=== PATIENT | female | born 1945 | race Caucasian/White ===

== ENCOUNTER → 2018-08-20 | Outpatient (CLI) | payer OTHER ==
[~2018-08-20] MED LIST: ASPI81CH PO; ASPI81EC PO; ATOR20 PO; CARV6.25 PO; CHLO5; CHOL10002; CLOP75 PO; Chantix0.5 MG PO; ERGO50000 PO; EVAMIST TOP; EXEM25 PO; FURO80 PO; HYDACE10B PO; HYDACE5 PO; Halcion0.25 MG PO; LISI20 PO; LORA.5 PO; MELA3 PO; META800 PO; NAPR500 PO; RANI150 PO; SERT100 PO; SERT25 PO; SULTRIDS PO; TRAM50 PO; Verotin-Gr Cap1 EACH PO
== END | disposition home or self-care (01) ==
LOC: PLD 07:56 → LAB SHORT 07:56
DX: L72.9 Follicular cyst of the skin and subcutaneous tissue, unspecified (principal)
CPT/HCPCS: 88304

== ENCOUNTER → 2018-12-11 | Outpatient (CLI) | payer OTHER ==
[2018-12-11 13:31] LABS: Source, Urine Clean Catch
[2018-12-11 18:02] LABS: Bilirubin, Urine Neg (Neg); Blood, Urine Neg (Neg); Glucose Qualitative, Urine Neg (Neg); Ketones, Urine Neg (Neg); Leukocyte Esterase, Urine 2+ (Neg); Nitrite, Urine Neg (Neg); Protein, Urine Neg (Neg); Urobilinogen, Urine NORM (Normal)
[2018-12-11 18:31] LABS: Appearance, Urine Clear (Clear); Color, Urine Yellow (P-Yellow)
[2018-12-11 18:37] LABS: Bacteria Mod /hpf; Red Blood Cells, Urine 0-2 /hpf (0-2); Squamous Epithelial Cells Few /hpf (Few)
== END ==
LOC: LAB SHORT 13:30 → LAB 13:30 → LAB FUT 10-27 13:00
PROVIDERS: Physician Assistant
DX: R41.3 Other amnesia (principal)
CPT/HCPCS: 81001; 87086

== ENCOUNTER 2022-05-21 16:42 | Emergency (ER) | payer OTHER ==
[~2022-05-21] VITALS: Ht 154.9 cm; Wt 61.2 kg
[2022-05-21 17:38] LABS: Influenza A, PCR NEGATIVE (NEGATIVE); Influenza B, PCR NEGATIVE (NEGATIVE); Resp Syncytial Virus, PCR NEGATIVE (NEGATIVE); SARS-Cov-2 (COVID-19) PCR, MMC NEGATIVE (NEGATIVE)
[2022-05-21 17:44] LABS: BASOPHILS ABSOLUTE AUTO 0.06 K/mm3 (0.00-0.23); BASOPHILS PERCENT AUTO 1 % (0-2); EOSINOPHILS ABSOLUTE AUTO 0.32 K/mm3 (0.00-0.68); EOSINOPHILS PERCENT AUTO 5 % (0-6); Hematocrit 46.4 % (33.0-51.0); Hemoglobin 16.8 g/dL (11.5-16.0); IMMATURE GRAN ABSOLUTE AUTO 0.01 K/mm3 (0.00-0.10); IMMATURE GRAN PERCENT AUTO 0 % (0-1); LYMPHOCYTES ABSOLUTE AUTO 2.58 K/mm3 (0.84-5.20); LYMPHOCYTES PERCENT AUTO 42 % (21-46); MONOCYTES ABSOLUTE AUTO 0.49 K/mm3 (0.16-1.47); MONOCYTES PERCENT AUTO 8 % (4-13); Mean Corpuscular HGB 32.6 pg (26.0-34.0); Mean Corpuscular HGB Conc 36.2 g/dL (31.5-36.5); Mean Corpuscular Volume 90 fL (80-100); Mean Platelet Volume 10.3 fL (9.1-12.4); NEUTROPHILS ABSOLUTE AUTO 2.64 K/mm3 (1.96-9.15); NEUTROPHILS PERCENT AUTO 43 % (41-73); Platelet Count 121 K/mm3 (150-400); RDW Coefficient Variation 12.3 % (11.7-14.2); Red Blood Cell Count 5.16 M/mm3 (3.80-5.20)
[2022-05-21 17:58] LABS: Albumin, Blood 3.7 g/dL (3.4-5.0); Albumin/Globulin Ratio 0.9 (0.8-1.8); Bilirubin, Total 0.7 mg/dL (0.1-1.0); Bun/Creatinine Ratio 22.4 (12.0-20.0); Creatinine, Blood 0.72 mg/dL (0.40-1.00); Potassium, Blood 4.2 mmol/L (3.5-5.5); Total Protein, Blood 7.7 g/dL (6.4-8.2)
== END 2022-05-21 20:42 | disposition home or self-care (01) ==
LOC: ER 16:42
PROVIDERS: Physician Assistant
DX: J20.9 Acute bronchitis, unspecified (principal); I10 Essential (primary) hypertension; F17.200 Nicotine dependence, unspecified, uncomplicated; Z20.822 Contact with and (suspected) exposure to COVID-19; Z88.0 Allergy status to penicillin; Z88.2 Allergy status to sulfonamides; Z88.8 Allergy status to other drugs, medicaments and biological substances; Z91.048 Other nonmedicinal substance allergy status; Z79.899 Other long term (current) drug therapy; Z79.82 Long term (current) use of aspirin
CPT/HCPCS: 0241U; 71046; 80053; 83880; 84484; 85025; 93005; 93010; 94640; 94664; A9270

== ENCOUNTER → 2023-11-01 | Outpatient (CLI) | payer OTHER ==
[2023-11-01 17:24] LABS: BASOPHILS ABSOLUTE AUTO 0.08 K/mm3 (0.00-0.23); BASOPHILS PERCENT AUTO 1 % (0-2); EOSINOPHILS ABSOLUTE AUTO 0.17 K/mm3 (0.00-0.68); EOSINOPHILS PERCENT AUTO 2 % (0-6); Hematocrit 47.4 % (33.0-51.0); Hemoglobin 16.9 g/dL (11.5-16.0); IMMATURE GRAN ABSOLUTE AUTO 0.02 K/mm3 (0.00-0.10); IMMATURE GRAN PERCENT AUTO 0 % (0-1); LYMPHOCYTES ABSOLUTE AUTO 3.26 K/mm3 (0.84-5.20); LYMPHOCYTES PERCENT AUTO 40 % (21-46); MONOCYTES ABSOLUTE AUTO 0.57 K/mm3 (0.16-1.47); MONOCYTES PERCENT AUTO 7 % (4-13); Mean Corpuscular HGB 33.4 pg (26.0-34.0); Mean Corpuscular HGB Conc 35.7 g/dL (31.5-36.5); Mean Corpuscular Volume 94 fL (80-100); Mean Platelet Volume 9.6 fL (9.1-12.4); NEUTROPHILS ABSOLUTE AUTO 4.09 K/mm3 (1.96-9.15); NEUTROPHILS PERCENT AUTO 50 % (41-73); Platelet Count 208 K/mm3 (150-400); RDW Coefficient Variation 11.9 % (11.7-14.2); RDW Standard Deviation 40.8 fL (35.1-46.3); Red Blood Cell Count 5.06 M/mm3 (3.80-5.20); White Blood Cell Count 8.19 K/mm3 (4.00-11.30)
[2023-11-01 19:49] LABS: Alanine Aminotransfer (ALT/SGP 47 U/L (12-78); Alk Phos 70 U/L (50-136); Anion Gap 8 mmol/L (3-11); Aspartate Aminotrans (AST/SGOT 50 U/L (12-37); Bilirubin, Total 0.5 mg/dL (0.1-1.0); Blood Urea Nitrogen 10 mg/dL (8-24); Bun/Creatinine Ratio 14.5 (12.0-20.0); CHOL/HDL RATIO 1.5; CO2, Blood 27 mmol/L (21-32); Calcium, Blood 9.3 mg/dL (8.5-10.1); Chloride, Blood 104 mmol/L (98-108); Cholesterol 139 mg/dL (50-200); Creatinine, Blood 0.69 mg/dL (0.40-1.00); Glomerular Filtration Rate 89 (60-); Glucose, Blood 104 mg/dL (70-99); HDL Cholesterol 91 mg/dL (>39); LDL/HDL RATIO 0.4; Low Density Lipoprotein Chol 32 mg/dL (0-110); Potassium, Blood 4.8 mmol/L (3.5-5.5); Sodium, Blood 134 mmol/L (136-145); Triglycerides 79 mg/dL (30-160); Very Low Density Lipoprot Chol 15 mg/dL (6-32)
== END ==
LOC: LAB 16:14 → LAB SHORT 16:14
PROVIDERS: Family Medicine
DX: I10 Essential (primary) hypertension (principal); F10.10 Alcohol abuse, uncomplicated; R41.3 Other amnesia
CPT/HCPCS: 80053; 80061; 82607; 82746; 84443; 85025

== ENCOUNTER 2023-12-05 06:10 | Emergency (ER) | payer OTHER ==
[~2023-12-05] VITALS: Ht 157.5 cm; Wt 59.0 kg
[2023-12-05] MEDS ORDERED: NS 1,000 ML IV SCH (06:50)
[2023-12-05 07:51] LABS: BASOPHILS ABSOLUTE AUTO 0.04 K/mm3 (0.00-0.23); BASOPHILS PERCENT AUTO 1 % (0-2); EOSINOPHILS ABSOLUTE AUTO 0.11 K/mm3 (0.00-0.68); EOSINOPHILS PERCENT AUTO 2 % (0-6); Hematocrit 47.8 % (33.0-51.0); Hemoglobin 16.9 g/dL (11.5-16.0); IMMATURE GRAN ABSOLUTE AUTO 0.03 K/mm3 (0.00-0.10); IMMATURE GRAN PERCENT AUTO 0 % (0-1); LYMPHOCYTES ABSOLUTE AUTO 1.49 K/mm3 (0.84-5.20); LYMPHOCYTES PERCENT AUTO 22 % (21-46); MONOCYTES ABSOLUTE AUTO 0.32 K/mm3 (0.16-1.47); MONOCYTES PERCENT AUTO 5 % (4-13); Mean Corpuscular HGB 32.8 pg (26.0-34.0); Mean Corpuscular HGB Conc 35.4 g/dL (31.5-36.5); Mean Corpuscular Volume 93 fL (80-100); Mean Platelet Volume 9.8 fL (9.1-12.4); NEUTROPHILS ABSOLUTE AUTO 4.72 K/mm3 (1.96-9.15); NEUTROPHILS PERCENT AUTO 70 % (41-73); Platelet Count 165 K/mm3 (150-400); RDW Coefficient Variation 11.9 % (11.7-14.2); RDW Standard Deviation 41.1 fL (35.1-46.3); Red Blood Cell Count 5.15 M/mm3 (3.80-5.20); White Blood Cell Count 6.71 K/mm3 (4.00-11.30)
[2023-12-05 08:10] LABS: Albumin, Blood 3.9 g/dL (3.4-5.0); Bilirubin, Total 0.6 mg/dL (0.1-1.0); Bun/Creatinine Ratio 14.1 (12.0-20.0); Calcium, Blood 8.9 mg/dL (8.5-10.1); Creatinine, Blood 0.71 mg/dL (0.40-1.00); Globulin, Blood 4.1 g/dL (2.2-4.0); Magnesium, Blood 1.9 mg/dL (1.6-2.4); Potassium, Blood 3.8 mmol/L (3.5-5.5)
[2023-12-05 10:30] VITALS: BP 171/84
== END 2023-12-05 11:40 | disposition home or self-care (01) ==
LOC: ER 06:10
PROVIDERS: Student in an Organized Health Care Education/Training Program
DX: S00.83XA Contusion of other part of head, initial encounter (principal); S50.312A Abrasion of left elbow, initial encounter; S60.512A Abrasion of left hand, initial encounter; S80.212A Abrasion, left knee, initial encounter; R55 Syncope and collapse; F10.90 Alcohol use, unspecified, uncomplicated; E78.5 Hyperlipidemia, unspecified; I10 Essential (primary) hypertension; F17.200 Nicotine dependence, unspecified, uncomplicated; W18.30XA Fall on same level, unspecified, initial encounter; Z86.59 Personal history of other mental and behavioral disorders; Z79.82 Long term (current) use of aspirin; Z79.02 Long term (current) use of antithrombotics/antiplatelets; Z79.899 Other long term (current) drug therapy; Z88.1 Allergy status to other antibiotic agents; Z88.2 Allergy status to sulfonamides; Z88.8 Allergy status to other drugs, medicaments and biological substances
CPT/HCPCS: 70450; 71046; 72125; 80053; 80320; 83735; 83880; 84484; 85025; 93005; 93010; 93246; 96360; 99284-25; J7030

== ENCOUNTER 2025-02-06 09:02 | Day surgery (SDC) | payer OTHER ==
[~2025-02-06] VITALS: Ht 154.9 cm; Wt 54.4 kg
[2025-02-06] VITALS (10 sets, daily range): BP systolic 122–166; BP diastolic 62–147
[~2025-02-06 09:02] MED LIST changes: +AMLO5 PO
[2025-02-06] MEDS ORDERED: NICO21TP TOP (09:51)
[2025-02-06] MEDS ORDERED: Midazolam HCl 1MG / ML 2ML Vial ONE ×3 (10:05→12:15)
[2025-02-06] MEDS ORDERED: NS 250 ML IV ONE (11:52)
[2025-02-06] MEDS ORDERED: Heparin Sodium 1000 Units/ML 10ML MDV ONE ×2 (11:52→11:56)
[2025-02-06] MEDS ORDERED: NS 1,000 ML IV ONE ×3 (11:52→12:15)
[2025-02-06] MEDS ORDERED: NS 100 ML IV ONE (12:05)
[2025-02-06] MEDS ORDERED: FentaNYL Citrate 50 MCG/ML 2 ML Injection ONE ×2 (12:15→12:16)
[2025-02-06] MEDS ORDERED: Ondansetron HCl 2 MG / ML 2ML Vial ONE (13:43)
--- NOTE | 2025-02-06 14:59 | NUR ---
RECOVERY PT BACK TO RECOVERY ROOM @ 1446. PT DROWSY BUT A&OX4. PT TOLERATING LAYING FLAT BUT NEEDING FREQUENT REMINDERS TO NOT MOVE LEGS/ SHIFT HIPS. NO SWELLING TO R FEMORAL SITE WITH ANGIO-SEAL. L FEMORAL ACCESS SITE HAS MODERATE SIZED FIRM HEMATOMA WITH SKIN MARKER OUTLINE AND TEGADERM CHG DRESSING. DOPPLER PULSES PRESENT TO RLE, ABSENT IN LLE.
--- NOTE | 2025-02-06 16:33 | NUR ---
DOPPLER PULSE FOUND L DP. LEFT FEMORAL SITE WITH FIRM HEMATOMA. HEMATOMA REDUCED AND IS SOFTER AT THIS TIME. PT NEEDS FREQUENT REMINDERS TO NOT LIFT OR BEND LOWER EXTREMITIES.
--- NOTE | 2025-02-06 17:15 | NUR ---
HEMATOMA ON LEFT REMAINS UNCHANGED. WILL CONTINUE TO MONITOR
--- NOTE | 2025-02-06 17:45 | NUR ---
PT HOB ELEVATED 30 DEGREES, BOTH GROIN SITES STABLE AT PRESENT TIME. WILL CONTINUE TO MONITOR.
--- NOTE | 2025-02-06 17:58 | NUR ---
BILAT GROIN SITES STABLE. PT HOB ELEVATED MORE AND IS EATING AT THE MOMENT
--- NOTE | 2025-02-06 18:10 | NUR ---
PT UP TO BATHROOM WITH CANE. BILAT GROIN SITES REMAIN STABLE.
--- NOTE | 2025-02-06 18:12 | NUR ---
DISCHARGE INSTRUCTIONS GONE OVER WITH PT, VERBALIZES UNDERSTANDING.
--- NOTE | 2025-02-06 18:14 | NUR ---
SALINE LOCK REMOVED WITH CATHETER INTACT, PRESSURE DRESSING APPLIED.
--- NOTE | 2025-02-06 18:18 | NUR ---
PT GROIN SITES REMAIN STABLE. PT IN W/C DISCHARGED WITH ONE STAFF IN CARE OF NEIGHBOR.
== END 2025-02-06 23:00 | disposition home or self-care (01) ==
LOC: MHTC 09:02
DX: I70.222 Atherosclerosis of native arteries of extremities with rest pain, left leg (principal); Z88.1 Allergy status to other antibiotic agents; Z88.2 Allergy status to sulfonamides; Z88.8 Allergy status to other drugs, medicaments and biological substances; F17.210 Nicotine dependence, cigarettes, uncomplicated
CPT/HCPCS: 36140; 36200; 37220; 37221; 37222; 37224; 75625; 75716; 75774; 76937; 99152; 99153; C1725; C1760; C1769; C1874; C1887; C1894; J1644; J2250; J2405; J3010; J7030; J7050; Q9967